=== PATIENT | male | born 1945 | race Caucasian/White ===

== ENCOUNTER → 2016-11-30 | Outpatient (CLI) | payer OTHER ==
--- NOTE | 2016-11-30 12:02 | DX ---
PA and Lateral Chest - November 30, 2016 Indication: Cough for 5 days. Comparison: None Findings: Lungs are clear, except for minimal diffuse peribronchial thickening and minimal linear bib asilar atelectasis. No confluent airspace consolidation, edema or effusion. The heart size is normal. Minimal degenerative disk disease is present in the upper and mid thoracic spine. Smooth ossicles al radha the medial aspect of the right glenoid are likely sequela of previous right shoulder surgery. Impression: Minimal bronchitis. No pneumonia or effusion.
== END ==
LOC: BMCIMAGING 11:17
PROVIDERS: ATTEND Internal Medicine
DX: J40 Bronchitis, not specified as acute or chronic (principal)

== ENCOUNTER 2017-12-27 12:21 | Emergency (ER) | payer OTHER ==
[2017-12-27 12:36] VITALS: RESP 18; TEMP 98.2
[2017-12-27] MEDS ORDERED: IBUPROFEN 600 MG TAB PO ONE (13:05)
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
[2017-12-27 15:25] VITALS: BP 134/82; PULSE 71; O2SAT 95
== END 2017-12-27 15:39 | disposition home or self-care (01) ==
DX: S79.911A Unspecified injury of right hip, initial encounter (principal); W18.39XA Other fall on same level, initial encounter; Y92.520 Airport as the place of occurrence of the external cause; Y93.01 Activity, walking, marching and hiking